=== PATIENT | male | born 1995 | race Caucasian/White ===

== ENCOUNTER 2020-12-08 21:53 | Emergency (ER) | payer OTHER ==
[2020-12-09] MEDS ORDERED: MEDROL 4MG DOSEP4 MG PO (03:04)
[2020-12-09] MEDS ORDERED: COLCRYS0.6 MG PO (03:04)
== END 2020-12-09 03:50 | disposition home or self-care (01) ==
LOC: FER 21:53
DX: M79.675 Pain in left toe(s) (principal); M79.89 Other specified soft tissue disorders
CPT/HCPCS: 73630